=== PATIENT | female | born 1995 | race Caucasian/White ===

== ENCOUNTER 2017-12-29 05:55 | Inpatient (IN) ==
[2017-12-29] MEDS ORDERED: Ondansetron 4 MG/2 ML VIAL IVP PRN (06:04)
[2017-12-29] MEDS ORDERED: Famotidine 20 MG/2 ML VIAL IVP PRN (06:04)
[2017-12-29] MEDS ORDERED: Naloxone 0.4 MG/ML INJ IVP PRN (06:04)
[2017-12-29] MEDS ORDERED: Metoclopramide 10 MG/2 ML VIAL IVP PRN (06:04)
[2017-12-29] MEDS ORDERED: *HR* Nalbuphine 10 MG/ML AMPUL IVP PRN (06:04)
[2017-12-29] MEDS ORDERED: miSOPROStol 25 MCG TABLET VG PRN (06:04)
[2017-12-29] MEDS ORDERED: Ringers Solution, Lactated 1,000 ML IVC SCH (06:15)
[2017-12-29 07:02] LABS: Basophils % 0.2 %; Eosinophils # 0.1 K/mcL (0.0-0.6); Hematocrit 36.2 % (35.3-44.9); Hemoglobin 12.7 g/dL (11.5-15.4); Immature Granulocytes % 0.3 % (0-4); Lymphocytes # 2.3 K/mcL (0.6-4.6); Lymphocytes % 23.3 %; Mean Corpuscular HGB Conc 35.1 g/dL (31.6-35.5); Mean Corpuscular Hemoglobin 30.6 pg (28.0-33.3); Mean Corpuscular Volume 87.2 fL (83.0-100.0); Mean Platelet Volume 10.3 fL (9.4-12.4); Monocytes # 0.8 K/mcL (0.0-1.3); Monocytes % 7.8 %; Neutrophils # 6.6 K/mcL (1.6-8.9); Platelet Count 273 K/mcL (140-400); Red Blood Count 4.15 M/mcL (3.82-4.97); Red Cell Distribution Width 13.8 % (11.5-14.5); Segmented Neutrophils % 67.4 %
[2017-12-29 07:56] LABS: Amphetamine Screen,Urine Negative ng/mL (Cutoff=1000); Barbiturate Screen,Urine Negative ng/mL (Cutoff=200); Benzodiazepines Screen,Urine Negative ng/mL (Cutoff=200); Cannabinoid Screen,Urine Negative ng/mL (Cutoff = 50); Cocaine Screen,Urine Negative ng/mL (Cutoff= 300); Opiate Screen,Urine Negative ng/mL (Cutoff=300); Phencyclidine Screen,Urine Negative ng/mL (Cutoff=25)
--- NOTE | 2017-12-29 08:06 | OB/GYN History & Physical ---
Date of Encounter: 12/29/17 Time of Encounter: 08:04 Assessment and Plan (1) and not yet delivered in third trimester Current visit: Yes Status: Acute (2) 39 weeks gestation of Current visit: Yes Status: Acute (3) Elective induction of labor planned Current visit: Yes Status: Acute History of Present Illness HPI: Ms. Vides is a 22 year old female 2 para 1 at 39 and one sevenths weeks who presented for induction of labor secondary to term with favorable cervix. Patient has had an uncomplicated course and was wanting be induced and the 39 week range. Patient ultrasound approximately 3 weeks ago baby weighed 2551 g which is the 40th percentile with an DENIA of 15 cm. She states that she is having occasional contractions no leaking of fluid no vaginal bleeding or vaginal discharge. Patient is GBS negative, A+, rubella positive, Varicella positive Past Med Surg Social Fam HX - Past Medical History Source: patient, old records reviewed Medical history: asthma Psychiatric history: no psych history - Past Surgical History Surgical History: no surgical history - Social History Smoking Status: Current every day smoker Packs per day: .5 Smokeless Tobacco Status: No Alcohol use: none Drug use: none Occupational status: unemployed Current living situation: Home - Independent Activity Level: Independent ambulation Recent Out of Country Travel Within the Last 8 Weeks: No Exposure or Possible Exposure to Illness During Travel: No - Family History Mother History Unknown: Yes Age: 42 Living Status: Still Living - Additional Family History Additional family history: Family history noncontributory Obstetrical History - Pregnancies : 2 Para: 1 Term: 1 : 0 Ab's: 0 Livin Medications and Allergies Formula Tablet 1 tab PO DAILY 12/29/17 [History] 3 Allergy/AdvReac Type Severity Reaction Status Date / Time omeprazole Allergy Dizziness Verified 12/29/17 06:26 Penicillins [PCN] AdvReac Swelling Verified 12/29/17 06:26 of Lip/Tongue/Throat Review of System OB All systems PM: reviewed and no additional remarkable complaints except as stated Exam - Vital Signs Vital signs: Initial Vital Signs Pulse Resp BP 111 16 116/68 12/29/17 06:28 12/29/17 06:28 12/29/17 06:28 - Constitutional Constitutional: well developed, well nourished, no acute distress, average body habitus - HEENT HEENT: EOMI, PERRL, Normocephaly, Mucus Membranes Moist - Neck Neck exam: full ROM - Lungs Respiratory exam: CTAB - Cardiovascular Cardiovascular exam: RRR - Breasts Breast: bilateral: normal - Abdomen Abdomen: Present: bowel sounds normal, gravid ( heart tones 140s reactive contractions every 2 minutes) - Cervix Dilation: 3 Effacement: 70 Station: -2 (Cee catheter placed with 40 mL in the balloon and 25 g Cytotec placed vaginally) Results Result Diagrams: 12/29/17 06:53 All other labs normal. - VTE Reasons for not Prescribing Prophylaxis: Treatment not Indicated - Low risk for VTE
--- NOTE | 2017-12-29 11:17 | Anesthesia Evaluation PreOp ---
Date of Encounter: 12/29/17 Time of Encounter: 11:03 - Past History Planned Operation: labor epidural Cardiac History: Denies any Significant Hx Pulmonary History: Smoker (<1pp for 4-5 yrs. 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 Previous epidural X1 with no complications. No FHAP.) : Yes Alcohol Use: none Drug use: none Medications and Allergies Formula Tablet 1 tab PO DAILY 12/29/17 [History] 3 Allergy/AdvReac Type Severity Reaction Status Date / Time omeprazole Allergy Dizziness Verified 12/29/17 06:26 Penicillins [PCN] AdvReac Swelling Verified 12/29/17 06:26 of Lip/Tongue/Throat - Meds/Allergy Pre-op Review Medications Reviewed: Yes Allergies Reviewed: Yes Beta Blockers on Current Med List: No Anesthesia Results - Labs 12/29/17 06:53 Anesthesia Exam 116/68, 111, 20. FHTs 150s. Height: 1.5m Weight: 89kg NPO (# of Hours): >8 Pain Scale: 6 Pain Scale Used: Numeric (1 - 10) - HEENT Pupil (Motor): Pupils equal, EOMI Mallampati: II Teeth: Normal Oral Opening: Greater than 3 - PRACTICAL MINISTRIES PROFESSOR LOC: Oriented PRACTICAL MINISTRIES PROFESSOR Motor: Normal RUE, Normal LUE, Normal RLE, Normal LLE, Normal Face PRACTICAL MINISTRIES PROFESSOR Sensory: Normal: RUE, LUE, RLE, LLE, Face - Cardiac Rhythm: Regular - Pulmonary Breath Sounds: bilateral Clear Respiratory Effort: Symmetrical Anesthesia Assess/Plan ASA Score: 2 Modified [place] Scale for Level of Consciousness: Cooperative, oriented, and tranquil Anesthetic Plan: Regional Monitoring Plan: Standard Monitors
[2017-12-29] MEDS ORDERED: Bupivacaine-MPF 0.25% 10 ML VIAL EP ONE (11:19)
[2017-12-29] MEDS ORDERED: *HR* FentaNYL (PF) 100 MCG/2 ML VIAL EP ONE (11:19)
[2017-12-29] MEDS ORDERED: *HR* FentaNYL (PF) 100 MCG/2 ML VIAL ONE (11:23)
[2017-12-29] MEDS ORDERED: Lidocaine -MPF 2% 5 ML VIAL ONE (11:24)
[2017-12-29] MEDS ORDERED: Bupivacaine-MPF 0.25% 10 ML VIAL ONE (11:24)
[2017-12-29] MEDS ORDERED: Epidural Premix (fent/bupiv) 110 ML EP SCH (11:30)
--- NOTE | 2017-12-29 12:19 | Anesthesia Procedures ---
Date of Encounter: 12/29/17 Time of Encounter: 11:28 Procedures: Anesthesia - Epidural/Spinal Patient ID/Chart reviewed: Yes Patient examined: Yes OB Eval: Gestational age: 39 OB Eval: : 2 OB Eval: Hx Para: 1 OB Eval: Dilated at (cm): 5 OB Eval: Contractions: Non-stressed pattern Consent Obtained: Yes Supplemental Oxygen: None/Room Air Site Prep: Aseptic Technique, Sterile prep and drape, Povidone-Iodine 1% Patient position: upright Local Anesthetic: Lidocaine 1% Amount of Local Anesthetic used: 5 Touhy Needle Gauge: 18 Touhy Needle Depth (cm): 7 Catheter Depth at Skin (cm): 20 Test Dose (1.5% Lido + Epi): Volume given (mls): 3 Test Dose Result: Negative Loading Dose: 0.25% Marcaine (mls): 8 Loading Dose: Fentanyl (mcg): 100 Loading Dose Administered: Thru Catheter Infusion Med: 0.125% Bupivacaine w/ 2 mcg/ml Fentanyl Infusion Rate (mls/hr): [address]: Tegaderm, Tape Interspace Used: L3-L4 Loss of Resistance (AMAN): Yes Blood: No CSF: No Paresthesia: No Procedure: attempted to place epidural at L3-4, found epidural space, catheter would not pass despite atempts at expanding the space with air and saline. Attempted at L2 -3, unsuccessful finding space, encountered bone only. Attempted also at L4-5 with no success. Attempted again at L3-4, found epidural space easily, catheter passed easily. Vitals + FHT's: 3 Vital Signs Time 1128 1157 1200 1205 1210 1215 BP 111/66 109/62 104/9 101/58 105/56 103/56 Pulse 9 83 105 89 95 85 FHTs 130 130 130 130 130 130
--- NOTE | 2017-12-29 13:11 | OB Labor Progress Note ---
Date of Encounter: 12/29/17 Time of Encounter: 13:10 Labor Progress Note - Subjective Subjective: Patient comfortable with epidural - Cervix Cervix: /0 AROM clear fluid - Heart Tones Heart Tones: heart tones 140s reactive - [place]: Contractions every 2-3 minutes irregular - Plan Plan: If she does not make any cervical change in the next 2 hours we will augment with Pitocin plan is to anticipate vaginal delivery
--- NOTE | 2017-12-29 16:16 | OB/GYN Procedure Note ---
Delivery - Delivery Date: 12/29/17 Provider: Deshawn Barahona Intrapartum events: none Delivery induction: fernandez, misoprostol Delivery augmentation: rupture of membranes Delivery monitor: external FHT, internal FHT Anesthesia: epidural Quantitated Blood Loss: 200 - (s) A Delivery Date: 12/29/17 Infant Delivery Time: 16:06 Presentation: vertex Position: YADIEL Route of delivery: Gender: Male Viability: Viable Pounds: 7 Ounces: 11 Weight Gram: 3480 kg at 1 minute: 9 at 5 mins: 9 Shoulder Dystocia: not encountered Specimens collected: cord blood Placenta: spontaneous Cord: 3 umbilical vessels, other (wrapped around body) - Repair Episiotomy: none Laceration Description: None - Complications Delivery complications: none Delivery comments: I examined this patient and my medical decision-making was reviewed with the Resident Physician. I agree with the documented findings, disposition and treatment plan as described except to the extent set forth below. Goodcorry Barahona Patient is a 22-year-old 2 para 1 at 39 and 1/7 weeks who was brought in for induction of labor secondary to term with favorable cervix. On admission patient was a good 2-3 cm Fernandez catheter was placed with 30 mL balloon along with 25 g of Cytotec. The balloon was out within one hour and patient was 5 cm patient received an epidural she was artificially ruptured for clear fluid noted. Patient progressed appropriately patient became completely pushed for approximately 30 minutes delivering a viable male in right occiput anterior presentation at 1606. There was a nuchal cord around the body 1 infant was delivered through this. Infant was bulb suctioned on the abdomen Apgars were 9 at 1 minute, 9 at 5 minutes, infant weight was 7 lbs. 11 oz. Placenta was delivered spontaneously with a three-vessel cord, childcare attendant Dr. Barahona, first breaker feeder Dr. Leslie PGY2, anesthesia epidural, estimated blood loss 200 mL. Perineum cervix and vagina was well visualized intact. She will be observed one hour before being taken floor. - Disposition Mom disposition: stable in [facility] [place] disposition: taken to nursery
[2017-12-29] MEDS ORDERED: Ibuprofen 600 MG TABLET PO PRN (18:00)
[2017-12-29] MEDS ORDERED: Oxytocin 20 units/ LR 1000 mL 20 UNIT/1,000 ML BAG IVC SCH (18:00)
[2017-12-29] MEDS ORDERED: Benzocaine/Menthol 56 GM AEROSOL SPRAY TP PRN (18:00)
[2017-12-29] MEDS ORDERED: Acetaminophen 325 MG TABLET PO PRN (18:00)
[2017-12-29] MEDS ORDERED: Lanolin 7 G OINT...G. TP PRN (18:00)
[2017-12-30 02:22] LABS: Basophils % 0.3 %; Eosinophils # 0.1 K/mcL (0.0-0.6); Eosinophils % 0.6 %; Hematocrit 37.1 % (35.3-44.9); Hemoglobin 12.5 g/dL (11.5-15.4); Immature Granulocytes % 0.5 % (0-4); Lymphocytes # 2.8 K/mcL (0.6-4.6); Lymphocytes % 23.1 %; Mean Corpuscular HGB Conc 33.7 g/dL (31.6-35.5); Mean Corpuscular Hemoglobin 30.6 pg (28.0-33.3); Mean Corpuscular Volume 90.9 fL (83.0-100.0); Mean Platelet Volume 10.4 fL (9.4-12.4); Monocytes % 8.2 %; Neutrophils # 8.1 K/mcL (1.6-8.9); Platelet Count 219 K/mcL (140-400); Red Blood Count 4.08 M/mcL (3.82-4.97); Red Cell Distribution Width 13.9 % (11.5-14.5); Segmented Neutrophils % 67.3 %
[2017-12-30] MEDS ORDERED: NON-FORMULARY MEDICATION 1 EACH EACH (Prenatal Formula Tablet 1 TAB) PO SCH (09:00)
[2017-12-30] MEDS ORDERED: Prenatal Vit/FA 1 EACH TABLET PO SCH (09:00)
--- NOTE | 2017-12-30 14:31 | Discharge Summary ---
Date of Encounter: 12/30/17 Time of Encounter: 14:25 - Discharge Diagnosis (1) Vaginal delivery Priority: Primary Status: Acute Comments: Pt states feels well, pain well managed on po pain medication, tolerates diet, desires discharge. - Discharge Medications Prescriptions: Ibuprofen [Motrin] 600 mg PO Q6HR PRN #60 tablet PRN Reason: Cramping Docusate [Colace] 100 mg PO BID #30 capsule Home Medications: Formula Tablet 1 tab PO DAILY 12/29/17 [History] Acetaminophen [Tylenol] 650 mg PO Q6HR PRN tablet 12/30/17 [Rx] Benzocaine/Menthol [place] [Dermoplast [place]] 1 appl TP QID PRN aerosol 12/30/17 [Rx] Docusate [Colace] 100 mg PO BID #30 capsule 12/30/17 [Rx] Ibuprofen [Motrin] 600 mg PO Q6HR PRN #60 tablet 12/30/17 [Rx] Lanolin [L[place]in[place]] 1 appl TP TID PRN oint...g. 12/30/17 [Rx] Vit/FA 1 each PO DAILY tablet 12/30/17 [Rx] Allergies/Adverse Reactions: 3 Allergy/AdvReac Type Severity Reaction Status Date / Time omeprazole Allergy Dizziness Verified 12/29/17 06:26 Penicillins [PCN] AdvReac Swelling Verified 12/29/17 06:26 of Lip/Tongue/Throat Data Procedures and tests throughout hospitalization: Laboratory Tests 12/29/17 12/29/17 12/30/17 06:30 06:53 02:07 WBC 9.8 12.0 H RBC 4.15 4.08 Hgb 12.7 12.5 Hct 36.2 37.1 MCV 87.2 90.9 MCH 30.6 30.6 MCHC 35.1 33.7 RDW 13.8 13.9 Plt Count 273 219 MPV 10.3 10.4 Immature Gran % 0.3 0.5 Seg Neutrophils % 67.4 67.3 Lymphocytes % 23.3 23.1 Monocytes % 7.8 8.2 Eosinophils % 1.0 0.6 Basophils % 0.2 0.3 Neutrophils # 6.6 8.1 Lymphocytes # 2.3 2.8 Monocytes # 0.8 1.0 Eosinophils # 0.1 0.1 Basophils # 0.0 0.0 Urine Opiates Screen Negative Ur Barbiturates Screen Negative Ur Phencyclidine Scrn Negative Ur Amphetamines Screen Negative U Benzodiazepines Scrn Negative Urine Cocaine Screen Negative U Marijuana (THC) Screen Negative Ur Drug Screen Interp See Below Labs on day of discharge: Labs from last 24 hours 12/30/17 02:07 WBC 12.0 H RBC 4.08 Hgb 12.5 Hct 37.1 MCV 90.9 MCH 30.6 MCHC 33.7 RDW 13.9 Plt Count 219 MPV 10.4 Immature Gran % 0.5 Seg Neutrophils % 67.3 Lymphocytes % 23.1 Monocytes % 8.2 Eosinophils % 0.6 Basophils % 0.3 Neutrophils # 8.1 Lymphocytes # 2.8 Monocytes # 1.0 Eosinophils # 0.1 Basophils # 0.0 Date of admission: 12/29/17 05:55 Primary care physician: Ivette Whyte CNP Consults: 12/29/17 18:00 Consult to Analytical Statistician [CONS] Routine Comment: Vaginal delivery, consult needed Discharging clinician: Denisha Leung Anticipated date of discharge: 12/30/17 - Patient Status Disposition: Home, Self-Care Condition: Good Functional capacity at discharge: independent ambulation Overall status at discharge: patient is back to baseline - Discharge Instructions Follow Up With: Ivette Whyte CNP [Primary Care Provider] - Deshawn Barahona DO [Partnered Physician] - - Diet and Activity Activity: resume usual activities as tolerated Diet: regular diet Hospital Course Reason for admission: induction of labor, IUP at term Delivery: Episiotomy: none Laceration: none Other procedures: none complications: none Discharge diagnosis: IUP at term delivered baby: male Hospital course: Delivery - Delivery Date: 12/29/17 Provider: Deshawn Barahona Intrapartum events: none Delivery induction: fernandez, misoprostol Delivery augmentation: rupture of membranes Delivery monitor: external FHT, internal FHT Anesthesia: epidural Quantitated Blood Loss: 200 - (s) A Infant Delivery Date: 12/29/17 Delivery Time: 16:06 Presentation: vertex Position: YADIEL Route of delivery: Gender: Male Viability: Viable Pounds: 7 Ounces: 11 Weight Gram: 3480 kg at 1 minute: 9 at 5 mins: 9 Shoulder Dystocia: not encountered Specimens collected: cord blood Placenta: spontaneous Cord: 3 umbilical vessels, other (wrapped around body) - Repair Episiotomy: none Laceration Description: None - Complications Delivery complications: none Delivery comments: I examined this patient and my medical decision-making was reviewed with the Resident Physician. I agree with the documented findings, disposition and treatment plan as described except to the extent set forth below. Dimitri Barahona Patient is a 22-year-old 2 para 1 at 39 and 1/7 weeks who was brought in for induction of labor secondary to term with favorable cervix. On admission patient was a good 2-3 cm Fernandez catheter was placed with 30 mL balloon along with 25 g of Cytotec. The balloon was out within one hour and patient was 5 cm patient received an epidural she was artificially ruptured for clear fluid noted. Patient progressed appropriately patient became completely pushed for approximately 30 minutes delivering a viable male in right occiput anterior presentation at 1606. There was a nuchal cord around the body 1 was delivered through this. Infant was bulb suctioned on the abdomen Apgars were 9 at 1 minute, 9 at 5 minutes, weight was 7 lbs. 11 oz. Placenta was delivered spontaneously with a three-vessel cord, senior java architect Dr. Barahona, nurse first aid Dr. Leslie PGY2, anesthesia epidural, estimated blood loss 200 mL. Perineum cervix and vagina was well visualized intact. She will be observed one hour before being taken floor. - Disposition Mom disposition: stable in PP and appropriate for discharge. Time Attestation: Total time spent providing and/or coordinating discharge services: Time Spent: Less than 30 minutes Exam - Constitutional Vitals: Temp Pulse Resp BP Pulse Ox 97.7 F 78 14 100/62 97 12/30/17 07:10 12/30/17 07:10 12/30/17 07:10 12/30/17 07:10 12/30/17 07:10 General appearance IM: A&O X 3 - Respiratory Respiratory exam: Present: CTAB - Cardiovascular Cardiovascular exam IM: Present: RRR - GI/Abdominal GI/Abdominal exam IM: soft - Uterine Tone: Firm Uterus Position: At Umbilicus - Extremities Exam Extremities exam IM: Present: normal capillary refill - Neurological Exam Neurological exam: normal gait, oriented X3 - Psychiatric Additional comments: reports good.
[2017-12-30 15:30] VITALS: BP 95/59
== END 2017-12-30 17:45 | disposition home or self-care (01) | DRG 560 ==
LOC: 1NENULAB 05:55 → 1NENUOBS 17:59
PROVIDERS: ADMIT Advanced Practice Midwife; ATTEND Obstetrics & Gynecology

== ENCOUNTER → 2021-10-08 19:02 | Observation (INO) ==
[2021-10-08 17:10] LABS: Bacteria,Urine Few per hpf (None-Few); Bilirubin,Urine Negative (Negative); Blood,Urine Negative (Negative); Clarity,Urine Turbid (Clear); Color,Urine Yellow (Yellow); Glucose,Urine (UA) Normal (Normal); Ketones,Urine >150 mg/dL (Negative); Leukocyte Esterase,Urine Small (Negative); Mucus,Urine Few per lpf (None-Few); Nitrite,Urine Negative (Negative); Protein,Urine 70 mg/dL (Neg-Trace); Squamous Epithelial Cell,Urine Moderate per hpf (None-Few); Transitional Epi Cells,Urine Few per hpf (None-Few); Urobilinogen,Urine Normal (Normal)
[~2021-10-08 19:02] MED LIST: Ringers Solution, Lactated 1,000 ML ONE
== END | disposition home or self-care (01) ==
LOC: 1NENULAB
PROVIDERS: ADMIT Advanced Practice Midwife; ATTEND Advanced Practice Midwife

== ENCOUNTER 2021-11-22 01:25 | Inpatient (IN) ==
[2021-11-22] MEDS ORDERED: Famotidine 20 MG/2 ML VIAL IVP PRN (01:32)
[2021-11-22] MEDS ORDERED: Azithromycin 500 MG in 0.9 % Sodium Chloride 250 ML IVPB PRN (01:32)
[2021-11-22] MEDS ORDERED: Metoclopramide 10 MG/2 ML VIAL IVP PRN (01:32)
[2021-11-22] MEDS ORDERED: *HR* FentaNYL (PF) 100 MCG/2 ML VIAL IVP PRN (01:32)
[2021-11-22] MEDS ORDERED: *HR* Nalbuphine 10 MG/ML AMPUL IV PRN (01:32)
[2021-11-22] MEDS ORDERED: Naloxone 0.4 MG/ML INJ IVP PRN (01:32)
[2021-11-22] MEDS ORDERED: Ondansetron 4 MG/2 ML VIAL IVP PRN (01:32)
[2021-11-22] MEDS ORDERED: Ringers Solution, Lactated 1,000 ML ONE (01:37)
[2021-11-22] MEDS ORDERED: Oxytocin 30 UNIT/503 ML BAG IVC ONE (01:38)
[2021-11-22] MEDS ORDERED: Ringers Solution, Lactated 1,000 ML IVC SCH (01:45)
[2021-11-22 02:02] LABS: Basophils % 0.3 %; Eosinophils # 0.1 K/mcL (0.0-0.6); Eosinophils % 1.3 %; Hemoglobin 12.2 g/dL (11.5-15.4); Immature Granulocytes % 0.4 % (0-4); Lymphocytes # 2.3 K/mcL (0.6-4.6); Lymphocytes % 22.8 %; Mean Corpuscular Hemoglobin 27.1 pg (28.0-33.3); Mean Platelet Volume 10.5 fL (9.4-12.4); Monocytes # 0.9 K/mcL (0.0-1.3); Monocytes % 8.8 %; Neutrophils # 6.8 K/mcL (1.6-8.9); Platelet Count 342 K/mcL (140-400); Red Blood Count 4.51 M/mcL (3.82-4.97); Red Cell Distribution Width 13.4 % (11.5-14.5); Segmented Neutrophils % 66.4 %; White Blood Count 10.3 K/mcL (4.3-11.1)
[2021-11-22] MEDS ORDERED: *HR* HYDROmorphone (PF) 1 MG/ML SYRINGE IVP ONE ×2 (02:55→03:08)
[2021-11-22] MEDS ORDERED: *HR* HYDROmorphone (PF) 1 MG/ML SYRINGE ONE (02:57)
[2021-11-22] MEDS ORDERED: Ketorolac 30 MG/ML VIAL IVP ONE (03:01)
[2021-11-22 03:15] LABS: Amphetamine Screen,Urine Negative ng/mL (Cutoff=1000); Barbiturate Screen,Urine Negative ng/mL (Cutoff=200); Benzodiazepines Screen,Urine Negative ng/mL (Cutoff=200); Cannabinoid Screen,Urine Negative ng/mL (Cutoff = 50); Cocaine Screen,Urine Negative ng/mL (Cutoff= 300); Opiate Screen,Urine Negative ng/mL (Cutoff=300); Phencyclidine Screen,Urine Negative ng/mL (Cutoff=25)
[2021-11-22] MEDS ORDERED: Oxytocin 30 UNIT/503 ML BAG IVC SCH (06:41)
[2021-11-22] MEDS ORDERED: Benzocaine/Menthol 56 GM AEROSOL SPRAY TP PRN (06:41)
[2021-11-22] MEDS ORDERED: Lanolin 7 G OINT...G. TP PRN (06:41)
[2021-11-22] MEDS ORDERED: Ondansetron ODT 4 MG TAB.RAPDIS SL PRN (06:41)
[2021-11-22] MEDS: Prenatal Vit/FA 1 EACH TABLET PO SCH (08:56)
[2021-11-22] MEDS: Acetaminophen 325 MG TABLET PO SCH (15:31)
[2021-11-22] MEDS: Ibuprofen 600 MG TABLET PO SCH (15:32)
[2021-11-22 22:21] VITALS: O2SAT 98
[2021-11-23 08:52] VITALS: BP 108/69; PULSE 73; TEMP 98
[2021-11-23] MEDS: Ibuprofen 600 MG TABLET PO SCH (09:26)
[2021-11-23] MEDS: Prenatal Vit/FA 1 EACH TABLET PO SCH (09:26)
[2021-11-23] MEDS: Acetaminophen 325 MG TABLET PO SCH (09:26)
== END 2021-11-23 10:55 | disposition home or self-care (01) | DRG 560 ==
LOC: 1NENULAB 01:25 → 1NENUOBS 06:40
PROVIDERS: ADMIT Obstetrics & Gynecology; ATTEND Obstetrics & Gynecology